=== PATIENT | female | born 1950 | race Caucasian/White ===

== ENCOUNTER 2017-01-16 20:55 | Observation (INO) ==
--- NOTE | 2017-01-17 00:18 | EKG Report ---
Stationary ECG Study [facility] ER Test Date: 01/16/2017 9:09:46 PM Pat Name: SAM TAVAREZ Department: Room: Gender: F Vp Product Management: : 1950 Requested by: Cristian Forrester Order Number: [id number] Reading MD: JOSE PATEL Intervals [place] Rate: 66 P: 24 AL: 165 QRS: 33 QRSD: 104 T: 56 QT: 399 QTc: 412 Interpretive Statements SINUS RHYTHM LOW QRS VOLTAGE IN PRECORDIAL LEADS Electronically Signed On 01-19-17 18:52:10 CDT by JOSE PATEL [email or web address]
--- NOTE | 2017-01-17 00:25 | Emergency Department Note ---
Arrival - Arrival Chief Complaint: Weakness Stated Complaint: weakness,feels bad ED Nursing Triage Note: Patient to triage with c/o generalized weakness and " not feeling good" since this afternoon. Patient was D/C'd from hospital in [place] today after being admitted s/p fall and UTI. During her hospitalization, patient was found to have blockage in her carotid and plaque on her brain. Patient arrives to triage with her records from her hospitalization for review. Patient is currrently AAOx4, able to transfer from to EKG table, and no deficits noted. no facial drooping. Patient c/o CASTELLANOS in triage. EKG performed in triage. Mode of Arrival: Wheelchair Limitations: No Limitations Source: Patient Time Seen by Provider: 01/16/17 23:44 - History of Present Illness HPI Narrative: The patient complains of generalized weakness and fatigue for the past week, mostly in the afternoon. She fell 3 days ago while walking to the car and was taken to [facility] where she was admitted until today. They found her to have a UTI, 50-70% left ICA stenosis and less than 50% right ICA stenosis. I do not have a report on the CT of the head. Patient denies any fever, cough, shortness of breath, chest pain, abdominal pain, nausea, vomiting , diaphoresis or other recent symptoms/illness. No history of similar symptoms in the past. She has a history of an aortic valve replacement in 2013. It is not clear whether she has a history of CHF or not. She had a lot of swelling in her feet and legs around 2 weeks ago and saw her primary care physician who started her on Lasix. Date of Last Menstrual Period: [facility] Allergies/Adverse Reactions: Allergies Allergy/AdvReac Type Severity Reaction Status Date / Time meperidine [From Demerol] Allergy Vomiting Verified 01/16/17 21:23 morphine Allergy Vomiting Verified 01/16/17 21:23 nitrofurantoin Allergy Swelling Verified 01/16/17 21:23 [From Macrobid] of Lip/Tongue/Throat steriods Allergy Unknown/Unable Uncoded 01/16/17 21:23 to obtain Review of System - Review of System 12 point system: reviewed and no additional remarkable complaints except as stated - Review of System Constitutional: Present: weakness. Absent: diaphoresis, fever Head/Ears/Nose/Throat: Absent: nasal drainage, sore throat Respiratory: Absent: cough, respiratory distress, wheezing Cardiovascular: Present: dyspnea on exertion, edema. Absent: chest pain, palpitations, orthopnea, syncope Gastrointestinal: Absent: abdominal pain, nausea, vomiting Genitourinary female: Absent: dysuria Medical,Surgical,& Family Hx - Medical History Cardio: History of: Hypertension, Cardiovascular Problems (valve replacement) Endocrine: History of: Diabetes Mellitus (NIDDM), Dyslipidemia Respiratory: History of: Obstructive Sleep Apnea (uses CPAP) Gastrointestinal: History of: GERD - Surgical History Additional Surgical History: Aortic valve replacement - Family History Family History: noncontributory - Social History Smoking Status: Never smoker Frequency of Alcohol Use: None Type of Drug Use: None Exam Physical Examination: GENERAL: Alert. No acute distress. HEENT: Normocephalic and atraumatic. There is no nasal drainage. No pharyngeal erythema or exudate. NECK: Normal inspection. Supple. No lymphadenopathy or meningismus. LUNGS: No respiratory distress. Clear to auscultation bilaterally, no wheezes, rales or rhonchi. HEART: Regular rate and rhythm. ABDOMEN: Soft, nontender and nondistended with normoactive bowel sounds. BACK: Normal inspection. SKIN: Color normal. Warm and dry. EXTREMITIES: Nontender. Normal range of motion. No pedal edema. NEUROLOGICAL/PSYCHIATRIC: Alert and oriented -3 with normal mood and affect. Cranial nerves normal. No motor or sensory deficit. Vital Signs: Vital Signs Temperature 96.8 F L 01/16/17 21:09 Pulse Rate 51 L 01/16/17 22:39 Respiratory Rate 18 01/16/17 22:39 Blood Pressure 142/66 01/16/17 22:39 O2 Sat by Pulse Oximetry 97 01/16/17 22:39 Course - Reevaluation(s) Reevaluation #1: The patient has remained stable in the ER with a benign exam. Thus far, workup is negative. BNP and d-dimer are still pending. It is not clear what is causing the patient's weakness but she is falling at home and will need admission. I discussed patient with Dr. Marvin who will see her and admit. Time: 02:36 Results - Labs CBC & BMP: 01/17/17 00:52 01/17/17 00:52 Lab Results: I have reviewed the patients labs Labs: Laboratory Tests 01/17/17 01/17/17 01/17/17 00:51 00:51 00:52 INR 1.0 D-Dimer, Quantitative <= 0.5 Total Bilirubin AST ALT Alkaline Phosphatase Total Creatine Kinase CK-MB (CK-2) Troponin I Free T4 0.91 TSH 3rd Generation 2.270 Urine Leukocytes Negative Urine RBC 1 Urine WBC 3 01/17/17 00:52 INR D-Dimer, Quantitative Total Bilirubin < 0.39 AST 13 ALT 22 Alkaline Phosphatase 102 Total Creatine Kinase 61 CK-MB (CK-2) 3.5 Troponin I < 0.015 Free T4 TSH 3rd Generation Urine Leukocytes Urine RBC Urine WBC BNP is still pending - Impressions EKG shows a sinus rhythm at 66 with low voltage in the precordial leads. Chest x-ray shows no acute cardiopulmonary abnormality. Disposition Clinical Impression: Generalized weakness Case discussed with: patient, patient's family Condition: Stable Time of Disposition: 02:40
[2017-01-17 01:30] LABS: Basophils # 0.1 10*3/uL (0.0-0.2); Basophils % 0.5 % (0.0-0.8); Eosinophils # 0.1 10*3/uL (0.0-0.87); Eosinophils % 1.4 % (0.00-10.9); Hematocrit 40.3 VOL% (35.7-47.0); Hemoglobin 13.9 GM/DL (12.0-16.0); Immature Granulocytes % 0.3 %; Immature Granulocytes Absolute 0.03 #; Lymphocytes # 3.2 10*3/uL (1.4-4.0); Lymphocytes % 34.7 % (21.3-54.2); Mean Corpuscular HGB Conc 34.5 GM/DL (32-36); Mean Corpuscular Hemoglobin 31 PG (27-34); Mean Corpuscular Volume 89.6 FL (87-102); Mean Platelet Volume 9.9 FL (9.6-12.0); Monocytes # 0.6 10*3/uL (0.11-0.8); Monocytes % 6.6 % (1.7-12.7); Neutrophils # 5.3 10*3/uL (1.4-7.4); Neutrophils % 56.5 % (38.7-73.9); Platelet Count 238 T/CUMM (130-400); Red Cell Distribution Width 11.9 % (9.3-17.3); White Blood Count 9.3 T/CUMM (4-12)
[2017-01-17 01:53] LABS: Alanine Aminotransferase 22 U/L (13-56); Albumin 3.6 G/DL (3.4-5.0); Alkaline Phosphatase 102 U/L (45-117); Aspartate Amino Transferase 13 U/L (0-37); Bilirubin,Total < 0.39 MG/DL (0.2-1.0); Blood Urea Nitrogen 17 MG/DL (7-18); Calcium 9.3 MG/DL (8.5-10.1); Glucose 223 MG/DL (74-106); Osmolality,Calculated 287.4 MOS/KG (273-304); Potassium 4.3 MMOL/L (3.5-5.1); Sodium 140 MMOL/L (136-145); Total Protein 6.7 G/DL (6.4-8.3); Troponin I Only < 0.015 NG/ML (0.00-0.045)
[2017-01-17 01:59] LABS: Apearance,Urine Slightly Hazy (Clear); Bilirubin,Urine Negative (Negative); Blood, Urine Negative (Negative); Glucose,Urine (UA) Negative (Negative); Ketones,Urine Negative (Negative); Mucus,Urine Occasional /LPF (Occasional); Nitrite,Urine Negative (Negative); Protein,Urine Negative; RBC,Urine 1 /HPF (0-4); Squamous Epithelial Cell,Urine Occasional /HPF (0-10); Urine Color Yellow (Yellow); Urine Specific Gravity 1.021 (1.001-1.035); Urine Urobilinogen < 2.0 EU/DL (0.2-1.0); WBC,Urine 3 /HPF (0-6)
[2017-01-17 02:00] LABS: Free T4 (Free Thyroxine) 0.91 NG/DL (0.76-1.46); Thyroid Stimulating Hormone 2.27 uIU/ml (0.358-3.74)
[2017-01-17 02:31] LABS: PT Patient Result 10.3 SECS; Partial Thromboplastin Time 25.9 SECS (0-40)
[2017-01-17] MEDS ORDERED: DEXTROSE 50% 25 GM/50 ML SYRINGE IV PRN (04:10)
[2017-01-17] MEDS ORDERED: ONDANSETRON 4 MG/2 ML VIAL IV PRN (04:10)
[2017-01-17] MEDS ORDERED: GLUCAGON 1 MG VIAL IM PRN (04:10)
--- NOTE | 2017-01-17 05:45 | Hospitalist History & Physical ---
Assessment and Plan - Time spent with patient Time spent with patient: Greater than 30 minutes (1) Generalized weakness Status: Acute Assessment and plan: Admit to hospitalist services. Monitored bed. Records from [facility] reviewed. Consult cardiology. Hx of aortic valve replacement. Obtain Echo report from [facility]/Dr. Olivares. Patient takes long acting benzodiazepine for anxiety. Concerned that she may be getting overloaded with this. Continue to prevent withdrawal, but decrease dose. Hydrate with NS at 50 ml/hr. May consider PT eval. Current Visit: Yes (2) Hypertension Status: Chronic Assessment and plan: Continue home medications. Monitor. Current Visit: Yes (3) Diabetes Status: Chronic Assessment and plan: Continue home medications. Diabetic diet. Accuchecks and SSI ACHS. Obtain A1c. Current Visit: Yes (4) GERD (gastroesophageal reflux disease) Status: Acute Assessment and plan: Continue home dose of omeprazole. Patient's daughter reported that she has had some facial twitching. Hold Reglan due to possible interaction with Seroquel. Current Visit: Yes (5) Sleep apnea Status: Acute Assessment and plan: Continue CPAP at bedtime and PRN at home settings. Current Visit: Yes (6) Anxiety and depression Status: Acute Assessment and plan: Continue home medications except decrease dose of long acting benzodiazepine, as above. Current Visit: Yes (7) DVT (deep venous thrombosis) Status: Acute Assessment and plan: Lovenox 40 mg SQ daily. Current Visit: Yes History of Present Illness Chief complaint: Severe weakness History of present illness: Ms. Tao is a 66 year old female with a past medical history of HTN, NIDDM, sleep apnea, GERD, Depression, Anxiety, and Aortic valve replacement by Dr. Christianson who presented to the ED today with complaints of severe weakness. Ms. Tao reports that she has has progressive weakness, malaise, and fatigue over the last 2 weeks with it becoming unbearable over the last week. Two weeks ago, she temporarily moved in with her daughter due to severity of symptoms and significant BLE edema. She was seen by her PCP who did a CXR and said she had fluid on her lungs. She was treated with lasix and potassium. She reports that weakness has onset in the afternoon and is present at rest. She becomes so fatigued and week that she cannot physically get up. Symptoms are relieved somewhat after sleeping. She also complains of chest heaviness, intermittent left-sided chest pain that is sharp, and continuous SOB. On Monday, she was feeling so bad, they took her to [facility]. On the way to the car, she collapsed from weakness. At [facility], they performed a CT head which reported showed "plaques" and a carotid doppler with reportedly showed 50-60% blockage in one artery. She was also treated for a UTI while there. She reports that her weigher and charger is Dr. Olivares. She last saw his [employer] TECHNICIAN 1-2 months ago. She had an Echo done 1 week ago but does not have results yet. Labs in [facility] ED were completely unremarkable. She is afebrile and vital signs are stable. Hospitalist services were consulted and the patient will be admitted for further evaluation and treatment. Home medications were reviewed and reconciled. This patient is a full code. Home Medications Medication Instructions Recorded Confirmed Type Aspirin EC Tab 81 mg PO DAILY 01/17/17 01/17/17 History Clorazepate [Tranxene] 7.5 mg PO BID 01/17/17 01/17/17 History Furosemide Tab [Lasix Tab] 20 mg PO DAILY 01/17/17 01/17/17 History Gabapentin 400 mg PO QID 01/17/17 01/17/17 History Hydrocodone/Acetaminophen [[place] 1 each PO Q4-6H 01/17/17 01/17/17 History 10-325 Tablet] Irbesartan [Avapro] 300 mg PO DAILY 01/17/17 01/17/17 History Metoclopramide Tab [Reglan Tab] 10 mg DAILY 01/17/17 01/17/17 History Metoprolol Succinate Xl [Toprol Xl] 50 mg PO DAILY 01/17/17 01/17/17 History Omeprazole 40 mg PO DAILY 01/17/17 01/17/17 History Oxybutynin Xl [Ditropan Xl] 5 mg PO DAILY 01/17/17 01/17/17 History Potassium Chloride 10 meq PO DAILY 01/17/17 01/17/17 History Pravastatin Sodium 20 mg PO DAILY 01/17/17 01/17/17 History Quetiapine Fumarate 100 mg PO BID 01/17/17 01/17/17 History Saxagliptin HCl/Metformin HCl 1 each PO DAILY 01/17/17 01/17/17 History [Kombiglyze Xr 5-1,000 mg Tab] buPROPion HCl [Bupropion HCl Sr] 150 mg PO BID 01/17/17 01/17/17 History Allergies Allergy/AdvReac Type Severity Reaction Status Date / Time meperidine [From Demerol] Allergy Vomiting Verified 01/16/17 21:23 morphine Allergy Vomiting Verified 01/16/17 21:23 nitrofurantoin Allergy Swelling Verified 01/16/17 21:23 [From Macrobid] of Lip/Tongue/Throat steriods Allergy Unknown/Unable Uncoded 01/16/17 21:23 to obtain Medical,Surgical,& Family Hx - Medical History Cardio: History of: Hypertension, Cardiovascular Problems (aortic valve replacement) Psychological: History of: Anxiety Disorders, Depression HEENT: History of: Ear Problem (Hard of hearing ) Endocrine: History of: Diabetes Mellitus (NIDDM), Dyslipidemia Respiratory: History of: Obstructive Sleep Apnea (uses CPAP) Gastrointestinal: History of: GERD Musculoskeletal: History of: Musculoskeletal Problems (Arthritis of bilateral knees) - Surgical History Cardiac Surgeries: Sugical HX of: Cardiac Surgery (Aortic valve replacement) HEENT Surgeries: Surgical HX of: Eye Surgery (cataract) Abdominal Surgeries: Surgical HX of: Appendectomy Reproductive Surgeries: Surgical HX of;: Genitourinary Surgery (Bladder tac), Hysterectomy, Tubal Ligation - Family History Family History: Reports;: Family Cancer, Family Diabetes, Family Heart Disease, Family Hypertension - Social History Smoking Status: Never smoker Have you smoked in the last 12 months: No Frequency of Alcohol Use: None Type of Drug Use: None Marital Status: Lives With:: Alone Functional capacity: uses cane/walker 12 point system: reviewed and no additional remarkable complaints except as stated - Constitutional Constitutional: Present: fatigue, malaise, weakness. Absent: anorexia, fever(s) , weight loss - EENT Eyes: Absent: blurry vision, diplopia, loss of vision Ears: Present: decreased hearing. Absent: ear discharge, ear pain Nose, mouth and throat: Present: headache(s) (Generalized CASTELLANOS every other day. ) . Absent: nasal congestion, sore throat - Cardiovascular Cardiovascular: Present: chest pain at rest, dyspnea, dyspnea on exertion, edema. Absent: orthopnea, palpitations - Respiratory Respiratory: Present: dyspnea. Absent: cough, wheezing - Gastrointestinal Gastrointestinal: Present: nausea. Absent: abdominal pain, diarrhea, vomiting - Genitourinary Genitourinary: Present: urinary frequency, urinary incontinence (urge incontinence). Absent: dysuria - Musculoskeletal Musculoskeletal: Present: arthralgias (bilateral knees), muscle weakness. Absent: joint swelling, myalgias - Neurological Neurological: Present: dizziness. Absent: confusion, numbness, paresthesias, syncope - Psychiatric Psychiatric: Present: anxiety, depression - Endocrine Endocrine: Absent: cold intolerance, polydipsia, polyphagia, polyuria - Hematologic/Lymphatic Hematologic/Lymphatic: Absent: easy bleeding, easy bruising Exam - Constitutional Vitals: Period Temp Pulse Resp BP Sys/Chauhan Pulse Ox Last 24 Hr 96.8 F-96.8 F 51-61 18-20 142-155/66-88 94-97 Exam: Constitutional System: Afebrile. Awake, alert and oriented x 3. Weak-appearing. No apparent distress. No tremulousness. Head: Normocephalic, atraumatic. Ears, Nose and Throat System: No pain or tenderness. No epistaxis or discharge Eyes System: Pupils equal, round, and reactive. Extraocular muscles intact. Neck: Supple, without adenopathy, No jugular venous distention. No thyromegaly, neck mass, or prior surgery apparent. Respiratory System: Chest clear to auscultation. Cardiovascular System: Heart with regular rate and rhythm. Murmur heard best over aortic field. GI System: Abdomen soft, nontender. Normo active bowel sounds present. Musculoskeletal System: Limbs with no pedal edema. Full distal pulses. Normal capillary refill. Neurological System: No discernable sensory deficit. No aphasia Psychiatric System: Conversation is rational. Speech and thought process are slow. Results - Labs CBC & BMP: 01/17/17 00:52 01/17/17 00:52 Lab Results: I have reviewed the past 24 hour labs - Diagnostic Findings Procedure: Chest x-ray: report reviewed by me
--- NOTE | 2017-01-17 07:41 | XRay Report ---
XR chest 1V portable Indication: Weakness Comparison: Chest x-ray March 31, 2014 Technique: Single frontal view of the chest. Findings: The cardiomediastinal silhouette is stable in configuration. Stable borderline heart size status post sternotomy/cardiac valve replacement. Visualized osseous and surrounding soft tissue structures appear grossly unchanged. Dextroconvex curvature of the thoracic spine. IMPRESSION: Stable chest x-ray. Continued borderline cardiomegaly without shana pulmonary edema. PROCEDURE INTERPRETED AT [facility] DEPARTMENT OF RADIOLOGY Final Report Signed by: Dr Iglesia Mari
[2017-01-17] MEDS: INSULIN LISPRO 100 UNIT/ML SUBCUT SCH ×4 (07:59→22:13)
[2017-01-17] MEDS ORDERED: INSULIN LISPRO 100 UNIT/ML SUBCUT ONE (08:02)
[2017-01-17] MEDS ORDERED: ACETAMINOPHEN 325 MG TABLET ONE (08:54)
[2017-01-17] MEDS: ACETAMINOPHEN 325 MG TABLET PO PRN ×2 (08:56→19:49)
[2017-01-17] MEDS: PANTOPRAZOLE 40 MG TABLET PO SCH (13:08)
[2017-01-17] MEDS: POTASSIUM CHLORIDE 10 MEQ TABLET PO SCH (13:09)
[2017-01-17] MEDS: METOPROLOL SUCCINATE XL 50 MG TABLET PO SCH (13:09)
[2017-01-17] MEDS: FUROSEMIDE 20 MG TABLET PO SCH (13:09)
[2017-01-17] MEDS: ASPIRIN EC 81 MG TABLET PO SCH (13:10)
[2017-01-17] MEDS: IRBESARTAN 150 MG TABLET PO SCH (13:10)
[2017-01-17] MEDS: sitaGLIPtin 100 MG TABLET PO SCH (13:10)
[2017-01-17] MEDS: buPROPion SR 150 MG TABLET PO SCH ×2 (13:10→21:06)
[2017-01-17] MEDS: OXYBUTYNIN XL 5 MG TABLET PO SCH (13:10)
[2017-01-17] MEDS: CLORAZEPATE 3.75 MG TABLET PO SCH ×2 (13:12→21:06)
[2017-01-17] MEDS: QUEtiapine 100 MG TABLET PO SCH ×2 (13:12→21:06)
[2017-01-17] MEDS: ENOXAPARIN 40 MG/0.4 ML SYRINGE SUBCUT SCH (13:21)
--- NOTE | 2017-01-17 14:28 | Cardiology Consult Note ---
Assessment and Plan - Time spent with patient Time spent with patient: Greater than 30 minutes (Exam chart review documentation) (1) Polypharmacy Status: Chronic Current Visit: Yes (2) Morbid exogenous obesity Status: Chronic Current Visit: Yes (3) S/P aortic valve replacement with bioprosthetic valve Status: Chronic Current Visit: Yes (4) Dyslipidemia Status: Chronic Current Visit: Yes (5) Carotid artery disease without cerebral infarction Status: Chronic Current Visit: Yes (6) Generalized weakness Status: Acute Current Visit: Yes (7) Hypertension Status: Chronic Current Visit: Yes (8) Diabetes Status: Chronic Current Visit: Yes Qualifiers: Diabetes mellitus type: type 2 (9) GERD (gastroesophageal reflux disease) Status: Acute Current Visit: Yes (10) Sleep apnea Status: Chronic Current Visit: Yes History of Present Illness - Data of Consult Patient: known to practice within the last 3 years Consult date: 01/17/17 Requesting Physician: Zach Carmichael (alban Olivares) - Consult Narrative Reason for consult: Weakness History of present illness: Ms. Tao is a 66 year old female with history of aortic stenosis status post bioprosthetic AVR by Dr. Loco Christianson in 2013. Her primary refractory products supervisor is Dr. Alexandre Olivares and he seen Dr. Olivares nurse practitioner Lynnbelkis Snyder just a few weeks ago and received a transthoracic echocardiogram. The patient is unaware of the results of this finding. The patient came to the emergency room at [facility] for generalized fatigue weakness somnolence she just cannot go. She is on many medications that can make her sedated. Actually during the exam she asked for pain medicine for her knees as well as her Neurontin. She has not had any chest pain she has chronic dyspnea she is morbidly obese with a BMI of 46 kg/m. This has been stable for some time she also has obstructive sleep apnea and states that she has to sleep on 2 pillows to breathe well. I recommended that we obtain the records from Dr. Olivares's office as it relates to her echocardiogram and if there is any acute findings on this study that she follow-up with Dr. Olivares. I do not see any acute changes on her EKG or any acute lab abnormalities that would suggest further workup from a cardiovascular standpoint and this inpatient admission. She denies any chest pain or change in her cardiopulmonary status. The records from [place] have apparently been ordered. Please call if there is anything that needs to be addressed on these otherwise I will sign off and recommend that she follow-up with Dr. Olivares at discharge CC: Zach Carmichael MD - Home Medications and Allergies Home Medications: Home Medications Medication Instructions Recorded Confirmed Type Aspirin EC Tab 81 mg PO DAILY 01/17/17 01/17/17 History Clorazepate [Tranxene] 7.5 mg PO BID 01/17/17 01/17/17 History Furosemide Tab [Lasix Tab] 20 mg PO DAILY 01/17/17 01/17/17 History Gabapentin 400 mg PO QID 01/17/17 01/17/17 History Hydrocodone/Acetaminophen [[place] 1 each PO Q4-6H 01/17/17 01/17/17 History 10-325 Tablet] Irbesartan [Avapro] 300 mg PO DAILY 01/17/17 01/17/17 History Metoclopramide Tab [Reglan Tab] 10 mg DAILY 01/17/17 01/17/17 History Metoprolol Succinate Xl [Toprol Xl] 50 mg PO DAILY 01/17/17 01/17/17 History Omeprazole 40 mg PO DAILY 01/17/17 01/17/17 History Oxybutynin Xl [Ditropan Xl] 5 mg PO DAILY 01/17/17 01/17/17 History Potassium Chloride 10 meq PO DAILY 01/17/17 01/17/17 History Pravastatin Sodium 20 mg PO DAILY 01/17/17 01/17/17 History Quetiapine Fumarate 100 mg PO BID 01/17/17 01/17/17 History Saxagliptin HCl [Onglyza] 5 mg PO QAM 01/17/17 01/17/17 History Saxagliptin HCl/Metformin HCl 1 each PO DAILY 01/17/17 01/17/17 History [Kombiglyze Xr 5-1,000 mg Tab] buPROPion HCl [Bupropion HCl Sr] 150 mg PO BID 01/17/17 01/17/17 History Allergies/Adverse Reactions: Allergies Allergy/AdvReac Type Severity Reaction Status Date / Time meperidine [From Demerol] Allergy Vomiting Verified 01/16/17 21:23 morphine Allergy Vomiting Verified 01/16/17 21:23 nitrofurantoin Allergy Swelling Verified 01/16/17 21:23 [From Macrobid] of Lip/Tongue/Throat steriods Allergy Unknown/Unable Uncoded 01/16/17 21:23 to obtain - Constitutional Constitutional: Present: daytime sleepiness, fatigue, increased appetite, lethargy, malaise, stops breathing during sleep, weakness, weight gain. Absent : anorexia, chills, night sweats - EENT Eyes: Absent: blurry vision, diplopia Nose, mouth and throat: Absent: dysphagia, epistaxis, neck pain, sore throat, throat swelling - Cardiovascular Cardiovascular: Present: dyspnea, dyspnea on exertion, edema, orthopnea. Absent : chest pain at rest, chest pain with activity, claudication, radiating jaw, neck or arm pain, palpitations, PND - Respiratory Respiratory: Present: dyspnea, dyspnea on exertion, snoring. Absent: cough, wheezing, pain on inspiration, change in phlegm color - Gastrointestinal Gastrointestinal: Present: constipation. Absent: abdominal pain, coffee ground emesis, dyspepsia, dysphagia, early satiety, fecal incontinence, odynophagia, vomiting - Genitourinary Genitourinary: Absent: flank pain, hematuria, vaginal discharge - Musculoskeletal Musculoskeletal: Present: arthralgias, back pain - Neurological Neurological: Present: abnormal gait. Absent: confusion, convulsions, disequilibrium, dizziness, headache(s), numbness, paresthesias, radicular pain, syncope - Psychiatric Psychiatric: Present: depression. Absent: anxiety, auditory hallucinations, confusion - Endocrine Endocrine: Absent: cold intolerance, heat intolerance - Hematologic/Lymphatic Hematologic/Lymphatic: Absent: easy bleeding, easy bruising Medical,Surgical,& Family Hx - Medical History Cardio: History of: Hypertension, Cardiovascular Problems (aortic valve replacement - bioprosthesis - [address] Christianson) Psychological: History of: Anxiety Disorders, Depression HEENT: History of: Ear Problem (Hard of hearing ) Endocrine: History of: Diabetes Mellitus (NIDDM), Dyslipidemia Respiratory: History of: Obstructive Sleep Apnea (uses CPAP) Gastrointestinal: History of: GERD Musculoskeletal: History of: Musculoskeletal Problems (Arthritis of bilateral knees) - Surgical History Cardiac Surgeries: Sugical HX of: Cardiac Surgery (Aortic valve replacement) HEENT Surgeries: Surgical HX of: Eye Surgery (cataract) Abdominal Surgeries: Surgical HX of: Appendectomy Reproductive Surgeries: Surgical HX of;: Genitourinary Surgery (Bladder tac), Hysterectomy, Tubal Ligation - Family History Family History: Reports;: Family Cancer, Family Diabetes, Family Heart Disease, Family Hypertension - Social History Smoking Status: Never smoker Frequency of Alcohol Use: None Type of Drug Use: None Physical Examination Vital Signs Temp Pulse Resp BP Pulse Ox 96.8 F L 61 20 155/88 94 L 01/16/17 21:09 01/16/17 21:09 01/16/17 21:09 01/16/17 21:09 01/16/17 21:09 General: Present: Appears Well, Other (Morbidly obese) HEENT: Present: PERRL, Other (ASA IV airway). Absent: Pallor Neck: Present: Supple Neck, Midline Trachea Cardiac: Present: Reg Rate and Rhythm, S1/S2, Other (3/6 murmur of aortic prosthesis all systolic) Lungs: Present: Normal Exam, Clear Ascult./Percussion Neuro: Present: Cranial Nerve 2-12 Intact, Motor Function Intact Abdomen: Present: Soft, Active Bowel Sounds, No Masses, No Pulsations/Bruits Skin: Present: Clear Extremities: Present: No Edema Result/EKG - Labs CBC & BMP: 01/17/17 00:52 01/17/17 00:52 Labs: Laboratory Results - last 24 hr 01/17/17 01/17/17 01/17/17 00:51 00:51 00:52 WBC RBC Hgb Hct MCV MCH MCHC RDW Plt Count MPV Neut % (Auto) Lymph % (Auto) [place] % (Auto) Eos % (Auto) Baso % (Auto) Neut # (Auto) Lymph # (Auto) [place] # (Auto) Eos # (Auto) Baso # (Auto) Immature Gran % Nucleated RBC % Immature Gran # Nucleated RBCs # INR 1.0 PT Patient/Control Mix 10.3 D-Dimer, Quantitative <= 0.5 Circ Anticoag PTT 25.9 Sodium Potassium Chloride Carbon Dioxide Anion Gap BUN Creatinine GFR Calculation BUN/Creatinine Ratio Glucose POC Glucose Hemoglobin A1c Calculated Osmolality Calcium Magnesium Total Bilirubin AST ALT Alkaline Phosphatase Total Creatine Kinase CK-MB (CK-2) Troponin I B-Natriuretic Peptide Total Protein Albumin Globulin Albumin/Globulin Ratio Free T4 0.91 TSH 3rd Generation 2.270 Urine Color Yellow Urine Appearance Slightly hazy Urine pH 5.0 Ur Specific [place] 1.021 Urine Protein Negative Urine Glucose (UA) Negative Urine Ketones Negative Urine Blood Negative Urine Nitrate Negative Urine Bilirubin Negative Urine Urobilinogen < 2.0 H Urine Leukocytes Negative Urine RBC 1 Urine WBC 3 Ur Squamous Epith Cells Occasional Urine Mucus Occasional Ur Culture Indicated? Not indicated 01/17/17 01/17/17 01/17/17 00:52 00:52 00:52 WBC 9.3 RBC 4.50 Hgb 13.9 Hct 40.3 MCV 89.6 MCH 31 MCHC 34.5 RDW 11.9 Plt Count 238 MPV 9.9 Neut % (Auto) 56.5 Lymph % (Auto) 34.7 [place] % (Auto) 6.6 Eos % (Auto) 1.4 Baso % (Auto) 0.5 Neut # (Auto) 5.3 Lymph # (Auto) 3.2 [place] # (Auto) 0.6 Eos # (Auto) 0.1 Baso # (Auto) 0.1 Immature Gran % 0.3 Nucleated RBC % 0.0 Immature Gran # 0.03 Nucleated RBCs # 0.00 INR PT Patient/Control Mix D-Dimer, Quantitative Circ Anticoag PTT Sodium 140 Potassium 4.3 Chloride 104 Carbon Dioxide 30 Anion Gap 10.3 BUN 17 Creatinine 1.20 H GFR Calculation 60 BUN/Creatinine Ratio 14.00 Glucose 223 H POC Glucose Hemoglobin A1c Calculated Osmolality 287.4 Calcium 9.3 Magnesium 2.0 Total Bilirubin < 0.39 AST 13 ALT 22 Alkaline Phosphatase 102 Total Creatine Kinase 61 CK-MB (CK-2) 3.5 Troponin I < 0.015 B-Natriuretic Peptide 61 Total Protein 6.7 Albumin 3.6 Globulin 3.1 Albumin/Globulin Ratio 1.1 Free T4 TSH 3rd Generation Urine Color Urine Appearance Urine pH Ur Specific [place] Urine Protein Urine Glucose (UA) Urine Ketones Urine Blood Urine Nitrate Urine Bilirubin Urine Urobilinogen Urine Leukocytes Urine RBC Urine WBC Ur Squamous Epith Cells Urine Mucus Ur Culture Indicated? 01/17/17 01/17/17 05:00 07:56 WBC RBC Hgb Hct MCV MCH MCHC RDW Plt Count MPV Neut % (Auto) Lymph % (Auto) [place] % (Auto) Eos % (Auto) Baso % (Auto) Neut # (Auto) Lymph # (Auto) [place] # (Auto) Eos # (Auto) Baso # (Auto) Immature Gran % Nucleated RBC % Immature Gran # Nucleated RBCs # INR PT Patient/Control Mix D-Dimer, Quantitative Circ Anticoag PTT Sodium Potassium Chloride Carbon Dioxide Anion Gap BUN Creatinine GFR Calculation BUN/Creatinine Ratio Glucose POC Glucose 246 H Hemoglobin A1c 6.9 H Calculated Osmolality Calcium Magnesium Total Bilirubin AST ALT Alkaline Phosphatase Total Creatine Kinase CK-MB (CK-2) Troponin I B-Natriuretic Peptide Total Protein Albumin Globulin Albumin/Globulin Ratio Free T4 TSH 3rd Generation Urine Color Urine Appearance Urine pH Ur Specific [place] Urine Protein Urine Glucose (UA) Urine Ketones Urine Blood Urine Nitrate Urine Bilirubin Urine Urobilinogen Urine Leukocytes Urine RBC Urine WBC Ur Squamous Epith Cells Urine Mucus Ur Culture Indicated? - EKG EKG results: interpreted by me, WNL
[2017-01-18 07:36] LABS: Basophils % 0.4 % (0.0-0.8); Eosinophils % 0.5 % (0.00-10.9); Hematocrit 38.8 VOL% (35.7-47.0); Hemoglobin 13.3 GM/DL (12.0-16.0); Immature Granulocytes % 0.2 %; Immature Granulocytes Absolute 0.02 #; Lymphocytes % 35.8 % (21.3-54.2); Mean Corpuscular HGB Conc 34.3 GM/DL (32-36); Mean Corpuscular Hemoglobin 30 PG (27-34); Mean Corpuscular Volume 88.6 FL (87-102); Mean Platelet Volume 9.9 FL (9.6-12.0); Monocytes # 0.6 10*3/uL (0.11-0.8); Monocytes % 6.7 % (1.7-12.7); Neutrophils # 4.7 10*3/uL (1.4-7.4); Neutrophils % 56.4 % (38.7-73.9); Platelet Count 274 T/CUMM (130-400); Red Blood Count 4.38 MC/CUMM (3.8-5.5); Red Cell Distribution Width 11.8 % (9.3-17.3); White Blood Count 8.3 T/CUMM (4-12)
[2017-01-18 07:49] VITALS: BP 127/67
[2017-01-18 08:10] LABS: Calcium 9.8 MG/DL (8.5-10.1); Osmolality,Calculated 287.3 MOS/KG (273-304); Potassium 3.7 MMOL/L (3.5-5.1)
[2017-01-18] MEDS: ASPIRIN EC 81 MG TABLET PO SCH (08:41)
[2017-01-18] MEDS: IRBESARTAN 150 MG TABLET PO SCH (08:41)
[2017-01-18] MEDS: OXYBUTYNIN XL 5 MG TABLET PO SCH (08:41)
[2017-01-18] MEDS: PANTOPRAZOLE 40 MG TABLET PO SCH (08:42)
[2017-01-18] MEDS: FUROSEMIDE 20 MG TABLET PO SCH (08:42)
[2017-01-18] MEDS: INSULIN LISPRO 100 UNIT/ML SUBCUT SCH (08:42)
[2017-01-18] MEDS: buPROPion SR 150 MG TABLET PO SCH (08:42)
[2017-01-18] MEDS: ENOXAPARIN 40 MG/0.4 ML SYRINGE SUBCUT SCH (08:42)
[2017-01-18] MEDS: POTASSIUM CHLORIDE 10 MEQ TABLET PO SCH (08:42)
[2017-01-18] MEDS: sitaGLIPtin 100 MG TABLET PO SCH (08:42)
[2017-01-18] MEDS: QUEtiapine 100 MG TABLET PO SCH (08:42)
[2017-01-18] MEDS: METOPROLOL SUCCINATE XL 50 MG TABLET PO SCH (08:42)
[2017-01-18] MEDS: CLORAZEPATE 3.75 MG TABLET PO SCH (08:42)
--- NOTE | 2017-01-18 09:17 | Discharge Summary ---
Hospital Course - Hospital Course Hospital Course: Ms. Toa is a 66 year old female with a past medical history of HTN, NIDDM, sleep apnea, GERD, Depression, Anxiety, and Aortic valve replacement by Dr. Christianson who presented to the ED today with complaints of severe weakness. Ms. Tao reports that she has has progressive weakness, malaise, and fatigue over the last 2 weeks with it becoming unbearable over the last week. Two weeks ago, she temporarily moved in with her daughter due to severity of symptoms and significant BLE edema. She was seen by her PCP who did a CXR and said she had fluid on her lungs. She was treated with lasix and potassium. She reports that weakness has onset in the afternoon and is present at rest. She becomes so fatigued and week that she cannot physically get up. Symptoms are relieved somewhat after sleeping. She also complains of chest heaviness, intermittent left-sided chest pain that is sharp, and continuous SOB. On Monday, she was feeling so bad, they took her to [facility]. On the way to the car, she collapsed from weakness. At [facility], they performed a CT head which reported showed "plaques" and a carotid doppler with reportedly showed 50-60% blockage in one artery. She was also treated for a UTI while there. She reports that her escort blind is Dr. Olivares. She last saw his [employer] 1-2 months ago. She had an Echo done 1 week ago but does not have results yet. Labs in [facility] ED were completely unremarkable. She is afebrile and vital signs are stable. Ms. Tao was admitted to the hospital with diagnosis of generalized weakness. She was seen in consultation by cardiology whose opinion was that there were no acute abnormalities. I recommended that she be allowed to go home and follow -up with her escort blind. She did well during her hospitalization with no specific complaints. At the time of her discharge she was comfortable and eager to go home. Diagnosis - Discharge Diagnosis (1) Generalized weakness Status: Chronic (2) Hypertension Status: Chronic (3) Diabetes Status: Chronic (4) GERD (gastroesophageal reflux disease) Status: Chronic (5) Sleep apnea Status: Chronic (6) Morbid exogenous obesity Status: Chronic (7) S/P aortic valve replacement with bioprosthetic valve Status: Chronic Discharge Plan - Discharge Data Disposition: Disch To Home/Self Care Condition at Discharge: Stable Discharge Diet: advance to your usual diet Activity: resume usual activities as tolerated - Discharge Medications New metFORMIN XR [Glucophage Xr] 1,000 mg PO DAILY #30 tablet Continue Pravastatin Sodium 20 mg PO DAILY buPROPion HCl [Bupropion HCl Sr] 150 mg PO BID Hydrocodone/Acetaminophen [[place] 10-325 Tablet] 1 each PO Q4-6H Oxybutynin Xl [Ditropan Xl] 5 mg PO DAILY Furosemide Tab [Lasix Tab] 20 mg PO DAILY Potassium Chloride 10 meq PO DAILY Irbesartan [Avapro] 300 mg PO DAILY Omeprazole 40 mg PO DAILY Clorazepate [Tranxene] 7.5 mg PO BID Gabapentin 400 mg PO QID Quetiapine Fumarate 100 mg PO BID Metoclopramide Tab [Reglan Tab] 10 mg DAILY Metoprolol Succinate Xl [Toprol Xl] 50 mg PO DAILY Aspirin EC Tab 81 mg PO DAILY Saxagliptin HCl [Onglyza] 5 mg PO QAM Discontinued Saxagliptin HCl/Metformin HCl [Kombiglyze Xr 5-1,000 mg Tab] 1 each PO DAILY - Follow Up or Referral - Forms/Instructions Exam - Constitutional Vitals: Period Temp Pulse Resp BP Sys/Chauhan Pulse Ox Last 24 Hr 97.1 F-98.7 F 68-90 16-22 120-146/60-71 92-100 Discharge Results Labs on day of discharge: Labs from last 24 hours 01/18/17 01/18/17 01/18/17 07:28 06:41 06:41 WBC 8.3 RBC 4.38 Hgb 13.3 Hct 38.8 MCV 88.6 MCH 30 MCHC 34.3 RDW 11.8 Plt Count 274 MPV 9.9 Neut % (Auto) 56.4 Lymph % (Auto) 35.8 [place] % (Auto) 6.7 Eos % (Auto) 0.5 Baso % (Auto) 0.4 Neut # (Auto) 4.7 Lymph # (Auto) 3.0 [place] # (Auto) 0.6 Eos # (Auto) 0.0 Baso # (Auto) 0.0 Immature Gran % 0.2 Nucleated RBC % 0.0 Immature Gran # 0.02 Nucleated RBCs # 0.00 Immature Plt Fraction 0.0 Sodium 141 Potassium 3.7 Chloride 104 Carbon Dioxide 31 Anion Gap 9.7 BUN 19 H Creatinine 1.10 H GFR Calculation 66 BUN/Creatinine Ratio 17.00 Glucose 180 H POC Glucose 201 H Calculated Osmolality 287.3 Calcium 9.8 01/17/17 01/17/17 20:48 15:45 WBC RBC Hgb Hct MCV MCH MCHC RDW Plt Count MPV Neut % (Auto) Lymph % (Auto) [place] % (Auto) Eos % (Auto) Baso % (Auto) Neut # (Auto) Lymph # (Auto) [place] # (Auto) Eos # (Auto) Baso # (Auto) Immature Gran % Nucleated RBC % Immature Gran # Nucleated RBCs # Immature Plt Fraction Sodium Potassium Chloride Carbon Dioxide Anion Gap BUN Creatinine GFR Calculation BUN/Creatinine Ratio Glucose POC Glucose 160 H 260 H Calculated Osmolality Calcium DS: Provider Date of admission: 01/17/17 04:04 Primary care physician: . No PCP Attending physician on admission: Zach Carmichael MD Consults: 01/17/17 04:10 Consult to Physician [CONS] Routine Comment: Consulting Provider: When should Consulting Provider be notified: In am Person Notified: RIGO Date Notified: 01/17/17 Time Notified: 12:56 Discharging clinician: Alberto Kaur
== END 2017-01-18 10:31 | disposition home or self-care (01) ==
LOC: N.ED 20:55 → N.EDINP 01-17 04:04 → INTOOBSV 01-17 04:04 → SUATTDRO 01-17 04:04 → N.EDINP 01-17 12:15 → N.5E 01-17 12:50
PROVIDERS: ADMIT Internal Medicine

== ENCOUNTER 2019-05-16 16:52 | Observation (INO) ==
[2019-05-16 18:14] LABS: Basophils # 0.1 10*3/uL (0.0-0.2); Basophils % 0.6 % (0.0-0.8); Eosinophils # 0.1 10*3/uL (0.0-0.87); Eosinophils % 1.3 % (0.00-10.9); Hematocrit 40.5 VOL% (35.7-47.0); Hemoglobin 13.2 GM/DL (12.0-16.0); Immature Granulocytes % 0.4 %; Immature Granulocytes Absolute 0.03 #; Lymphocytes % 35.9 % (21.3-54.2); Mean Corpuscular HGB Conc 32.6 GM/DL (32-36); Mean Corpuscular Volume 90.6 FL (87-102); Mean Platelet Volume 9.6 FL (9.6-12.0); Monocytes % 5.3 % (1.7-12.7); Neutrophils % 56.5 % (38.7-73.9); Platelet Count 299 T/CUMM (130-400); Red Blood Count 4.47 MC/CUMM (3.8-5.5); Red Cell Distribution Width 12.7 % (9.3-17.3); White Blood Count 8.5 T/CUMM (4-12)
[2019-05-16 18:34] LABS: Apearance,Urine CLEAR (Clear); Bilirubin,Urine Negative (Negative); Blood, Urine Negative (Negative); Glucose,Urine (UA) Negative (Negative); Ketones,Urine Negative (Negative); Nitrite,Urine Negative (Negative); Protein,Urine Negative; RBC,Urine 1 /HPF (0-4); Squamous Epithelial Cell,Urine Occasional /HPF (0-10); Urine Color Straw (Yellow); Urine Specific Gravity 1.009 (1.001-1.035); Urine Urobilinogen < 2.0 EU/DL (0.2-1.0); WBC,Urine 4 /HPF (0-6)
[2019-05-16 18:50] LABS: Alanine Aminotransferase 26 U/L (13-56); Albumin 3.6 G/DL (3.4-5.0); Alkaline Phosphatase 103 U/L (45-117); Aspartate Amino Transferase 19 U/L (0-37); Bilirubin,Total < 0.39 MG/DL (0.2-1.0); Blood Urea Nitrogen 7 MG/DL (7-18); Calcium 9.1 MG/DL (8.5-10.1); Estimated Glom Filtration Rate 101 ML/MIN; Glucose 151 MG/DL (74-106); Osmolality,Calculated 275.7 MOS/KG (273-304); Total Protein 7.3 G/DL (6.4-8.3)
[2019-05-16] MEDS ORDERED: GLUCAGON 1 MG VIAL IM PRN ×2 (20:27)
[2019-05-16] MEDS ORDERED: DEXTROSE 50% 25 GM/50 ML VIAL IV PRN ×2 (20:27)
[2019-05-16] MEDS ORDERED: hydrALAZINE 20 MG/1 ML VIAL IV STA ×2 (22:15)
[2019-05-16] MEDS ORDERED: hydrALAZINE 20 MG/1 ML VIAL ONE (22:18)
[2019-05-16] MEDS ORDERED: hydrALAZINE 20 MG/1 ML VIAL IV PRN (23:15)
[2019-05-17] MEDS ORDERED: QUEtiapine 100 MG TABLET PO SCH (00:23)
[2019-05-17] MEDS ORDERED: FUROSEMIDE 20 MG TABLET PO PRN (00:23)
[2019-05-17] MEDS: INSULIN LISPRO 100 UNIT/ML SUBCUT SCH ×3 (00:25→12:29)
[2019-05-17] MEDS: PANTOPRAZOLE 40 MG VIAL IV SCH ×2 (00:26→08:36)
[2019-05-17] MEDS ORDERED: SIMVASTATIN 10 MG TABLET PO SCH (00:30)
[2019-05-17] MEDS: GABAPENTIN 300 MG CAPSULE PO SCH ×2 (00:49→08:37)
[2019-05-17] MEDS: ACETAMINOPHEN 325 MG TABLET PO PRN ×2 (00:50→08:37)
[2019-05-17 05:54] LABS: Basophils % 0.4 % (0.0-0.8); Eosinophils # 0.1 10*3/uL (0.0-0.87); Eosinophils % 1.1 % (0.00-10.9); Hematocrit 39.1 VOL% (35.7-47.0); Hemoglobin 12.6 GM/DL (12.0-16.0); Immature Granulocytes % 0.2 %; Immature Granulocytes Absolute 0.02 #; Lymphocytes # 2.4 10*3/uL (1.4-4.0); Lymphocytes % 29.4 % (21.3-54.2); Mean Corpuscular HGB Conc 32.2 GM/DL (32-36); Mean Corpuscular Volume 91.1 FL (87-102); Mean Platelet Volume 9.6 FL (9.6-12.0); Monocytes % 4.8 % (1.7-12.7); Neutrophils % 64.1 % (38.7-73.9); Platelet Count 252 T/CUMM (130-400); Red Blood Count 4.29 MC/CUMM (3.8-5.5); Red Cell Distribution Width 12.9 % (9.3-17.3); White Blood Count 8.2 T/CUMM (4-12)
[2019-05-17 06:18] LABS: Risk Ratio 4.25
[2019-05-17 06:30] LABS: Albumin 3.4 G/DL (3.4-5.0); Bilirubin,Total 0.5 MG/DL (0.2-1.0); Calcium 8.9 MG/DL (8.5-10.1); Osmolality,Calculated 282.4 MOS/KG (273-304); Total Protein 6.5 G/DL (6.4-8.3)
[2019-05-17] MEDS ORDERED: LOSARTAN 50 MG TABLET PO SCH (09:00)
[2019-05-17] MEDS ORDERED: ASPIRIN EC 81 MG TABLET PO SCH (09:00)
[2019-05-17] MEDS ORDERED: METOPROLOL SUCCINATE XL 50 MG TABLET PO SCH (09:00)
[2019-05-17 12:16] VITALS: BP 153/86
[2019-05-17] MEDS ORDERED: PNEUMOCOCCAL VACCINE (13 VALENT) 0.5 ML SYRINGE IM ONE (15:43)
[2019-05-17] MEDS ORDERED: PANTOPRAZOLE 40 MG TABLET PO SCH (21:00)
== END 2019-05-17 16:18 | disposition home or self-care (01) ==
LOC: EDUNIT# → EDBD → N.EDINP 16:52 → N.ED 16:52 → N.TELES 23:38
PROVIDERS: ADMIT Internal Medicine; ATTEND Internal Medicine